=== PATIENT | female | born 2000 | race Caucasian/White ===

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

== ENCOUNTER → 2021-04-27 | Outpatient (CLI) | payer BC ==
--- NOTE | 2021-04-28 08:15 | XR ---
EXAMINATION TYPE: XR knee 4V RT DATE OF EXAM: 04/27/2021 COMPARISON: NONE HISTORY: Pain TECHNIQUE: Three views are submitted. FINDINGS: Joint spaces are preserved. Osseous structures are intact. No acute fracture seen. IMPRESSION: 1. No acute fracture or dislocation.
--- NOTE | 2021-04-28 08:18 | XR ---
EXAMINATION TYPE: XR nasal bone DATE OF EXAM: 04/27/2021 COMPARISON: NONE HISTORY: Pain TECHNIQUE: 4 views submitted FINDINGS: The visualized nasal bone appears intact with no definite acute displaced fracture. Styloid intact. Slight nasal septal deviation. IMPRESSION: No acute fracture.
== END | disposition home or self-care (01) ==
LOC: RADXRMAIN 18:32
PROVIDERS: ATTEND Family Medicine
DX: M25.561 Pain in right knee (principal); J34.89 Other specified disorders of nose and nasal sinuses
CPT/HCPCS: 70160